=== PATIENT | female | born 1950 | race Two or more races ===

== ENCOUNTER 2017-01-07 10:33 | Day surgery (SDC) | payer OTHER ==
[2017-01-06 11:14] VITALS: BMI 22.2
[~2017-01-07] VITALS: Ht 157.5 cm; Wt 53.2 kg
[2017-01-07] VITALS (11 sets, daily range): BP systolic 106–149; BP diastolic 59–78; PULSE 78–86; RESP 16–33; Ht 157.5 cm; Wt 53.2 kg
[~2017-01-07 10:33] MED LIST: BACL20TA PO; CEFAZOLIN 2 GM/50 ML (PMX) 50 ML IVPB ONE; COU2 PO; DICL100G37 TOP; HYDR-3498 PO; MECL12.5 PO; SOD CHLORIDE 0.9% 1,000 ML IV SCH
[2017-01-07] MEDS ORDERED: ALEN70TA30 PO (11:22)
[2017-01-07] MEDS ORDERED: AMLO5TAB4 PO (11:23)
[2017-01-07] MEDS ORDERED: ATEN-51 PO (11:23)
[2017-01-07] MEDS ORDERED: BENA40TA41 PO (11:25)
[2017-01-07] MEDS ORDERED: OMEP40CA6 PO (11:25)
[2017-01-07] MEDS ORDERED: LEVO50TA71 PO (11:26)
[2017-01-07] MEDS ORDERED: RANI150T5 PO (11:26)
[2017-01-07] MEDS ORDERED: HYD25 PO (11:27)
[2017-01-07] MEDS ORDERED: IBUP-1542 PO (11:27)
[2017-01-07] MEDS ORDERED: DOCU-144 PO (11:28)
[2017-01-07] MEDS ORDERED: CALC-143 PO (11:29)
[2017-01-07] MEDS ORDERED: BUPIVACAINE 0.25% (MPF) 30 ML INJ ONE (11:48)
[2017-01-07] MEDS ORDERED: POLYMYXIN/BACITRACIN 1L IRRIG ONE (11:52)
[2017-01-07] MEDS ORDERED: LIDOCAINE 2% (SDV) 5 ML INJ ONE (12:06)
[2017-01-07] MEDS ORDERED: PROPOFOL 60 ML ONE (12:06)
[2017-01-07] MEDS ORDERED: ROCURONIUM 50 MG INJ ONE (12:08)
[2017-01-07] MEDS ORDERED: FENTAnyl 50 MCG/ML VIAL ONE (12:09)
[2017-01-07] MEDS ORDERED: POLYMYXIN/BACITRACIN 1L IRRIG IRR ONE (12:18)
[2017-01-07] MEDS ORDERED: BUPIVACAINE 0.25% (STERILE-PAK) 30 ML INJ INJ ONE (12:18)
[2017-01-07] MEDS ORDERED: CEFAZOLIN 1 GM INJ ONE (13:00)
[2017-01-07] MEDS ORDERED: DEXAMETHASONE 4 MG/ML 1 ML INJ ONE (13:01)
--- NOTE | 2017-01-07 13:09 | PN ---
Date/Time of Note Date/Time of Note DATE: 01/07/17 TIME: 13:09 Assessment/Plan VTE Prophylaxis VTE Prophylaxis Intervention: SCD's Lines/Catheters IV Catheter Type (from Nrs): Peripheral IV Subjective 24 Hr Interval Summary Free Text/Dictation Informed Consent Obtained. Risks and benefits of proposed surgery were discussed with the patient. Alternatives to proposed procedure and their risks and benefits were discussed with the patient. Potential complications include but are not limited to bleeding, infection, injury to surrounding tissues, organs, nerves, and vessels were discussed. For laparoscopic procedures, need for conversion to open procedure was discussed. Possible need for additional future operations were discussed. Remote risks such as the possibility of , disfigurement, and/or permanent disability were discussed with the patient. Patient expressed understanding and consents with the operation. Exam/Review of Systems Vital Signs Vitals Vital Signs Date Time Temp Pulse Resp B/P Pulse Ox O2 Delivery O2 Flow Rate FiO2 01/07/17 10:45 98.1 86 16 149/74 97 Room Air Medications Medications Current Medications Sodium Chloride (NS) 1,000 ml @ 75 mls/hr [id number] IV ; Start 01/07/17 at 10:30 ; Stop 01/07/17 at 23:49 Sweta HERNANDEZ January 07, 2017 13:09
[2017-01-07] MEDS ORDERED: PHENYLephrine (100 MCG/ML) 5ML SYG ONE (13:20)
[2017-01-07] MEDS ORDERED: MEPERIDINE 25 MG INJ IV PRN (13:30)
[2017-01-07] MEDS ORDERED: hydrALAzine 20 MG INJ IV PRN (13:30)
[2017-01-07] MEDS ORDERED: DIPHENHYDRAMINE 50 MG INJ IV PRN (13:30)
[2017-01-07] MEDS ORDERED: HYDROmorphONE (0.2 MG/ML) 10ML SYG IV PRN ×3 (13:30)
[2017-01-07] MEDS ORDERED: ONDANSETRON 4 MG INJ IV PRN (13:30)
[2017-01-07] MEDS ORDERED: FENTAnyl 50 MCG/ML VIAL IV PRN ×3 (13:30)
[2017-01-07] MEDS ORDERED: EPHEDrine SULFATE 50 MG/5 ML SYG IV PRN (13:30)
[2017-01-07] MEDS ORDERED: LABETALOL HCL 20MG INJ IV PRN (13:30)
[2017-01-07] MEDS ORDERED: METOCLOPRAMIDE 10 MG INJ IV PRN (13:30)
--- NOTE | 2017-01-07 13:59 | OPR ---
DATE OF OPERATION: 01/07/2017 INDICATION: This is a 66-year-old female with incarcerated ventral hernia. She requests surgical r epair of her hernia. Risks, alternatives, benefits, and personnel were discussed with the patient. The patient expressed understanding and consents to the operation. PREOPERATIVE DIAGNOSIS: Incarcerated ventral hernia. POSTOPERATIVE DIAGNOSIS: Incarcerated ventral hernia. OPERATION PERFORMED: 1. Laparoscopic incarcerated ventral hernia repair. CPT code 68329. 2. Implantation of mesh. CPT code 87715. SURGEON: Kenyon Dyer MD OIL EXPELLER OPERATOR: Trent Werner MD SPECIMEN: None. COMPLICATIONS: None. ANESTHESIA: General. PROCEDURE: The patient was taken to the OR and prepped and draped in the usual sterile fashion. Loya rgical timeout was performed. IV antibiotics were given. Left upper quadrant 5 mm incision was mad e transversely with a 15 blade. Using a 5 mm optical trocar, optical entry was performed. Pneumope ritoneum was established. Left flank 12 mm optical trocar and left lower quadrant 5 mm optical troc ars were placed under direct visualization. Upon initial inspection, there were incarcerated conten ts into the ventral hernia. This was reduced laparoscopically using Harmonic henry. The defect wa s identified and closed with interrupted #1 Prolene using Endo Close. Underlay mesh with approximat chase 4 to 5 cm of coverage in all directions was secured in place with SecureStrap with Ventralight S T 10 x 15 cm mesh. There was good hemostasis. Ports were removed under direct visualization. Skin was closed using skin jocelyn. Local anesthesia was injected. Dry dressings were applied. Dictated By: KENYON DYER MD SB/LETICIA Conf#: [id number] DID#: [id number]
[2017-01-07] MEDS ORDERED: HYDROCODONE/APAP (5/325) TAB PO ONE (14:00)
--- NOTE | 2017-01-07 15:23 | OPPN ---
Date/Time of Note Date/Time of Note DATE: 01/07/17 TIME: 15:22 Post-Anesthesia Notes Post-Anesthesia Note Last documented vital signs Vital Signs Date Time Temp Pulse Resp B/P Pulse Ox O2 Delivery O2 Flow Rate FiO2 01/07/17 14:56 97.4 85 18 137/69 97 Room Air 01/07/17 14:22 2.0 Activity: WNL Respiratory function: WNL Cardiovascular function: WNL Mental status: Baseline Pain reasonably controlled: Yes Hydration appropriate: Yes Nausea/Vomiting absent: Yes DURAN TERESA January 07, 2017 15:23
== END 2017-01-07 16:16 | disposition home or self-care (01) ==
LOC: SDS 10:33
PROVIDERS: ATTEND Surgery
DX: K43.6 Other and unspecified ventral hernia with obstruction, without gangrene (principal); E78.5 Hyperlipidemia, unspecified; E03.9 Hypothyroidism, unspecified; I10 Essential (primary) hypertension
CPT/HCPCS: 49653; C1781; J0690; J1100; J2175; J2370; J2405; J3010; Z7512; Z7610